=== PATIENT | male | born 2000 | race Caucasian/White ===

== ENCOUNTER 2021-02-07 13:08 | Emergency (ER) | payer MEDICAID ==
[2021-02-07 14:30] LABS: Bilirubin Negative (Negative); Blood, Urine Negative (Negative); Clarity Clear (Clear); Glucose, Urine (Dipstick) Normal (Negative); Ketone, Urine Negative (Negative); Leukocyte Negative Leu/uL (Negative); Nitrite Negative (Negative); Protein, Urine (Dipstick) 10 mg/dL (Neg-Trace); Specific Gravity, Urine 1.028 (1.002-1.036); Urobilinogen Normal mg/dL (Less than 2)
[2021-02-09 22:46] LABS: Chlam.trachomatis by PCR,Urine Not Detected (NotDetected)
== END 2021-02-07 14:55 | disposition home or self-care (01) ==
LOC: ERS 13:08
DX: N50.812 Left testicular pain (principal)
CPT/HCPCS: 76870; 81003; 87086; 87491; 87591; 93976